=== PATIENT | female | born 1970 | race Caucasian/White ===

== ENCOUNTER → 2018-04-09 | Outpatient (CLI) | payer OTHER | END | disposition home or self-care (01) | LOC: ORTHO 03:33 | DX: M25.562 Pain in left knee (principal) ==

== ENCOUNTER → 2018-04-21 | Outpatient (CLI) | payer OTHER | END | disposition home or self-care (01) | LOC: MRI 02:54 | DX: S83.282A Other tear of lateral meniscus, current injury, left knee, initial encounter (principal); M17.12 Unilateral primary osteoarthritis, left knee; M25.462 Effusion, left knee; X58.XXXA Exposure to other specified factors, initial encounter; Y93.89 Activity, other specified; Y92.89 Other specified places as the place of occurrence of the external cause; Y99.8 Other external cause status ==

== ENCOUNTER 2020-12-30 09:37 | Emergency (ER) | payer OTHER ==
[~2020-12-30] VITALS: Ht 160 cm; Wt 88.5 kg
[2020-12-30 09:49] VITALS: BP 168/84
[2020-12-30] MEDS ORDERED: SEPTDS PO (10:08)
[2020-12-30] MEDS ORDERED: CEPHALEXIN500 M1 PO (10:08)
== END 2020-12-30 10:20 | disposition home or self-care (01) ==
LOC: ED 09:37
DX: L02.415 Cutaneous abscess of right lower limb (principal)

== ENCOUNTER → 2021-03-13 | Outpatient (CLI) | payer OTHER ==
[~2021-03-13] MED LIST: CEPHALEXIN500 M1 PO; SEPTDS PO
[2021-03-13 11:09] LABS: CREATININE 0.89 mg/dL (0.55-1.02)
== END | disposition home or self-care (01) ==
LOC: LAB 10:29
PROVIDERS: ATTEND Surgery
DX: Z01.818 Encounter for other preprocedural examination (principal)

== ENCOUNTER → 2021-03-18 | Outpatient (CLI) | payer OTHER | END | disposition home or self-care (01) | LOC: CT 00:10 | PROVIDERS: ATTEND Surgery | DX: Z01.818 Encounter for other preprocedural examination (principal); K76.0 Fatty (change of) liver, not elsewhere classified; L02.211 Cutaneous abscess of abdominal wall; E65 Localized adiposity ==

== ENCOUNTER → 2022-01-10 | Outpatient (CLI) | payer OTHER ==
[2022-01-10 07:28] LABS: BASO % 0.4 % (0.0-1.0); EOS # 0.2 10*3/uL (0.0-0.4); EOS % 3.9 % (1.0-4.0); HEMATOCRIT 41.8 % (37.0-47.0); LYMPH # 1.7 10*3/uL (1.3-4.4); LYMPH % 36.2 % (27.0-41.0); MEAN CELL VOLUME 89.5 fl (81.0-99.0); MEAN CORPUSCULAR HGB 28.9 pg (27.0-31.0); MEAN CORPUSCULAR HGB CONC 32.3 g/dl (33.0-37.0); MONO # 0.5 10*3/uL (0.1-1.0); NEUT # 2.3 10*3/uL (2.3-7.9); NEUT % 49.3 % (47.0-73.0); PLATELET COUNT AUTOMATED 231 10*3/uL (130-400); RED BLOOD COUNT 4.67 10*6/uL (4.10-5.10); RED CELL DISTRI WIDTH 12.3 % (0-14.5); WHITE BLOOD COUNT 4.6 10*3/uL (4.8-10.8)
[2022-01-10 07:57] LABS: ALKALINE PHOSPHATASE 88 U/L (45-117); BUN 15 mg/dl (7-24); CHLORIDE 107 mmol/L (98-107); CHOLESTEROL 157 mg/dL (<200); CREATININE 1.05 mg/dL (0.55-1.02); LDL CHOLESTEROL 88 mg/dL (9-159); POTASSIUM 4.1 mmol/L (3.5-5.1); SGOT/AST 30 IU/L (3-35); SGPT/ALT 47 U/L (12-78); SODIUM 139 mmol/L (136-145); TOTAL PROTEIN 7.5 gm/dL (6.4-8.2); TRIGLYCERIDES 95 mg/dl (<150)
== END | disposition home or self-care (01) ==
LOC: LAB 07:04
PROVIDERS: ATTEND Nurse Practitioner
DX: Z13.9 Encounter for screening, unspecified (principal); L02.91 Cutaneous abscess, unspecified

== ENCOUNTER → 2022-01-21 | Outpatient (CLI) | payer OTHER | END | disposition home or self-care (01) | LOC: MAMMO 00:23 | PROVIDERS: ATTEND Surgery | DX: Z12.31 Encounter for screening mammogram for malignant neoplasm of breast (principal); L02.91 Cutaneous abscess, unspecified; N64.89 Other specified disorders of breast ==

== ENCOUNTER → 2022-03-11 | Outpatient (CLI) | payer OTHER ==
[~2022-03-11] MED LIST changes: +NAPROXEN250 MG PO; +TYLENOL325 M1 PO
== END | disposition home or self-care (01) ==
LOC: WOUNDCARE 03:32
PROVIDERS: ATTEND Surgery
DX: N61.1 Abscess of the breast and nipple (principal); L02.411 Cutaneous abscess of right axilla; L73.2 Hidradenitis suppurativa

== ENCOUNTER → 2022-03-18 | Outpatient (CLI) | payer OTHER | END | disposition home or self-care (01) | LOC: WOUNDCARE 03-17 05:02 | PROVIDERS: ATTEND Surgery | DX: L02.411 Cutaneous abscess of right axilla (principal); L73.2 Hidradenitis suppurativa ==

== ENCOUNTER → 2022-03-19 | Outpatient (CLI) | payer OTHER | END | disposition home or self-care (01) | LOC: RAD 18:52 | PROVIDERS: ATTEND Physical Therapist | DX: M54.12 Radiculopathy, cervical region (principal); M25.512 Pain in left shoulder; M25.712 Osteophyte, left shoulder ==

== ENCOUNTER → 2022-04-01 | Outpatient (CLI) | payer OTHER | LOC: WOUNDCARE 01:36 | PROVIDERS: ATTEND Surgery | DX: L02.411 Cutaneous abscess of right axilla (principal); L73.2 Hidradenitis suppurativa ==

== ENCOUNTER → 2022-04-29 | Outpatient (CLI) | payer OTHER | END | disposition home or self-care (01) | LOC: WOUNDCARE 01:08 | PROVIDERS: ATTEND Surgery | DX: L02.411 Cutaneous abscess of right axilla (principal); L73.2 Hidradenitis suppurativa ==

== ENCOUNTER → 2022-10-28 | Outpatient (CLI) | payer OTHER ==
[2022-10-28 17:19] LABS: BASO % 0.4 % (0.0-1.0); EOS # 0.1 10*3/uL (0.0-0.4); EOS % 1.8 % (1.0-4.0); HEMATOCRIT 44.2 % (37.0-47.0); LYMPH # 2.3 10*3/uL (1.3-4.4); LYMPH % 30.1 % (27.0-41.0); MEAN CELL VOLUME 90.2 fl (81.0-99.0); MEAN CORPUSCULAR HGB 29.4 pg (27.0-31.0); MEAN CORPUSCULAR HGB CONC 32.6 g/dl (33.0-37.0); MEAN PLATELET VOLUME 12.1 fl (9.6-12.3); MONO # 0.6 10*3/uL (0.1-1.0); MONO % 7.6 % (3.0-9.0); NEUT # 4.6 10*3/uL (2.3-7.9); PLATELET COUNT AUTOMATED 229 10*3/uL (130-400); RED CELL DISTRI WIDTH 12.6 % (0-14.5); WHITE BLOOD COUNT 7.7 10*3/uL (4.8-10.8)
== END | disposition home or self-care (01) ==
LOC: LAB 16:56
PROVIDERS: ATTEND Student in an Organized Health Care Education/Training Program
DX: I10 Essential (primary) hypertension (principal)

== ENCOUNTER 2024-01-14 15:11 | Emergency (ER) | payer OTHER ==
[~2024-01-14] VITALS: Ht 157.4 cm; Wt 90.7 kg
[~2024-01-14 15:11] MED LIST changes: -AMLODIPINE BESYL5 MG PO; -METFORMIN HYDR500 MG PO
[2024-01-14] MEDS ORDERED: METFORMIN HYDR500 MG PO (15:22)
[2024-01-14] MEDS ORDERED: AMLODIPINE BESYL5 MG PO (15:23)
[2024-01-14] MEDS ORDERED: HYDROmorphONE Hydrochloride 1 MG/ML SYR IV ONE (15:30)
[2024-01-14] MEDS ORDERED: Ondansetron Hydrochloride 4 MG/2 ML VIAL IV ONE (15:30)
[2024-01-14] MEDS ORDERED: SODIUM CHLORIDE 0.9% 1,000 ML IV ONE (15:30)
[2024-01-14] MEDS ORDERED: POTASSIUM CHLORIDE 20 MEQ TAB PO ONE (15:35)
[2024-01-14] MEDS ORDERED: Ceftriaxone Sodium 1 GM/10 ML SYR IV ONE (15:35)
[2024-01-14 17:44] VITALS: BP 144/72
[2024-01-14] MEDS ORDERED: HYDROmorphONE Hydrochloride 1 MG/ML SYR IV PRN (17:55)
[2024-01-14] MEDS ORDERED: Ondansetron Hydrochloride 4 MG/2 ML VIAL IV SCH (20:00)
== END 2024-01-14 18:41 | disposition home or self-care (01) ==
LOC: ED 15:11
DX: N20.0 Calculus of kidney (principal); N39.0 Urinary tract infection, site not specified; E87.6 Hypokalemia; N17.9 Acute kidney failure, unspecified; R11.2 Nausea with vomiting, unspecified

== ENCOUNTER → 2024-01-14 | Outpatient (CLI) | payer OTHER ==
[~2024-01-14] MED LIST changes: +AMLODIPINE BESYL5 MG PO; +METFORMIN HYDR500 MG PO
[2024-01-14 10:47] LABS: HEMATOCRIT 43.2 % (37.0-47.0); MEAN CELL VOLUME 88.2 fl (81.0-99.0); MEAN CORPUSCULAR HGB 29.2 pg (27.0-31.0); MEAN CORPUSCULAR HGB CONC 33.1 g/dl (33.0-37.0); MEAN PLATELET VOLUME 12.4 fl (9.6-12.3); PLATELET COUNT AUTOMATED 155 10*3/uL (130-400); RED CELL DISTRI WIDTH 12.5 % (0-14.5); WHITE BLOOD COUNT 12.3 10*3/uL (4.8-10.8)
[2024-01-14 10:48] LABS: MANUAL DIFF REFLEX YES
[2024-01-14 11:16] LABS: TOTAL CELLS COUNTED 100 #CELLS
[2024-01-14 11:17] LABS: PLATELET SUFFICIENCY NORMAL (NORMAL); POLYCHROMASIA SLIGHT; VACUOLATION OF NEUTROPHILS SLIGHT
[2024-01-14 11:22] LABS: POTASSIUM 3.3 mmol/L (3.4-5.1); TOTAL PROTEIN 7.7 gm/dL (6.0-8.0)
== END | disposition home or self-care (01) ==
LOC: LAB 09:50 → CT 09:50
PROVIDERS: ATTEND Nurse Practitioner Family
DX: N20.0 Calculus of kidney (principal); N17.9 Acute kidney failure, unspecified; R00.0 Tachycardia, unspecified; R11.2 Nausea with vomiting, unspecified; R10.12 Left upper quadrant pain; N04.9 Nephrotic syndrome with unspecified morphologic changes; N13.30 Unspecified hydronephrosis; N13.4 Hydroureter; M48.07 Spinal stenosis, lumbosacral region; M25.78 Osteophyte, vertebrae; K76.0 Fatty (change of) liver, not elsewhere classified

== ENCOUNTER → 2024-02-03 | Outpatient (CLI) | payer OTHER ==
[~2024-02-03] MED LIST changes: +AMLODIPINE BESYL5 MG PO; +METFORMIN HYDR500 MG PO
[2024-02-03 15:49] LABS: BASO % 0.5 % (0.0-1.0); EOS # 0.3 10*3/uL (0.0-0.4); EOS % 4.9 % (1.0-4.0); LYMPH # 1.9 10*3/uL (1.3-4.4); LYMPH % 33.7 % (27.0-41.0); MEAN CELL VOLUME 93.5 fl (81.0-99.0); MEAN PLATELET VOLUME 12.2 fl (9.6-12.3); MONO # 0.6 10*3/uL (0.1-1.0); MONO % 10.5 % (3.0-9.0); NEUT # 2.9 10*3/uL (2.3-7.9); NEUT % 50.2 % (47.0-73.0); PLATELET COUNT AUTOMATED 246 10*3/uL (130-400); RED BLOOD COUNT 4.28 10*6/uL (4.10-5.10); RED CELL DISTRI WIDTH 12.9 % (0-14.5); WHITE BLOOD COUNT 5.7 10*3/uL (4.8-10.8)
[2024-02-03 16:11] LABS: POTASSIUM 3.9 mmol/L (3.4-5.1); TOTAL PROTEIN 7.3 gm/dL (6.0-8.0)
== END | disposition home or self-care (01) ==
LOC: RAD 08:59 → LAB 08:59
PROVIDERS: Nurse Practitioner Family; ATTEND Urology
DX: N20.0 Calculus of kidney (principal); N17.9 Acute kidney failure, unspecified; Z96.0 Presence of urogenital implants; M47.817 Spondylosis without myelopathy or radiculopathy, lumbosacral region

== ENCOUNTER → 2024-02-16 | Outpatient (CLI) | payer OTHER | END | disposition home or self-care (01) | LOC: RAD 16:46 | PROVIDERS: ATTEND Urology | DX: N20.0 Calculus of kidney (principal) ==

== ENCOUNTER → 2024-02-26 | Outpatient (CLI) | payer OTHER | END | disposition home or self-care (01) | LOC: US 02-24 17:00 | PROVIDERS: ATTEND Urology | DX: N20.0 Calculus of kidney (principal) ==

== ENCOUNTER → 2024-02-29 | Outpatient (CLI) | payer OTHER ==
[2024-02-29 16:11] LABS: BASO % 0.6 % (0.0-1.0); BILIRUBIN Negative (Negative); BLOOD Negative (Negative); CLARITY Cloudy (Clear); COLOR Yellow (Yellow); EOS # 0.2 10*3/uL (0.0-0.4); GLUCOSE Negative (Negative); HEMATOCRIT 39.7 % (37.0-47.0); KETONE Trace (Negative); LEUKO ESTERASE 1+ (Negative); LYMPH # 1.9 10*3/uL (1.3-4.4); LYMPH % 35.4 % (27.0-41.0); MEAN CELL VOLUME 92.5 fl (81.0-99.0); MEAN CORPUSCULAR HGB 29.4 pg (27.0-31.0); MEAN CORPUSCULAR HGB CONC 31.7 g/dl (33.0-37.0); MEAN PLATELET VOLUME 12.3 fl (9.6-12.3); MONO # 0.5 10*3/uL (0.1-1.0); MONO % 9.7 % (3.0-9.0); NEUT # 2.7 10*3/uL (2.3-7.9); NEUT % 51.1 % (47.0-73.0); NITRITE Negative (Negative); PH 5.5 (4.5-8.0); PLATELET COUNT AUTOMATED 221 10*3/uL (130-400); RED BLOOD COUNT 4.29 10*6/uL (4.10-5.10); RED CELL DISTRI WIDTH 13.1 % (0-14.5); SPECIFIC GRAVITY 1.025 (1.001-1.030); WHITE BLOOD COUNT 5.3 10*3/uL (4.8-10.8)
[2024-02-29 16:30] LABS: MUCOUS TRACE; WBC 16-20 wbc/hpf (0-5)
[2024-02-29 16:36] LABS: POTASSIUM 3.5 mmol/L (3.4-5.1); THYROXINE (T4) TOTAL 6.1 ug/dl (4.5-10.9); TOTAL PROTEIN 7.8 gm/dL (6.0-8.0)
== END | disposition home or self-care (01) ==
LOC: LAB 01:47
PROVIDERS: ATTEND Urology
DX: N20.0 Calculus of kidney (principal); E83.50 Unspecified disorder of calcium metabolism; R31.9 Hematuria, unspecified

== ENCOUNTER → 2024-03-03 | Outpatient (CLI) | payer OTHER | END | disposition home or self-care (01) | LOC: LAB 07:21 | PROVIDERS: ATTEND Urology | DX: N20.0 Calculus of kidney (principal); E83.50 Unspecified disorder of calcium metabolism; R31.9 Hematuria, unspecified ==

== ENCOUNTER → 2024-04-26 | Outpatient (CLI) | payer OTHER | END | disposition home or self-care (01) | LOC: RAD 01:58 | PROVIDERS: ATTEND Nurse Practitioner Family | DX: M25.461 Effusion, right knee (principal); M25.561 Pain in right knee ==

== ENCOUNTER → 2024-07-18 | Outpatient (CLI) | payer OTHER | END | disposition home or self-care (01) | LOC: LAB 07-15 16:31 | PROVIDERS: ATTEND Urology | DX: N20.0 Calculus of kidney (principal); E83.50 Unspecified disorder of calcium metabolism; R31.9 Hematuria, unspecified ==

== ENCOUNTER → 2025-03-24 | Outpatient (CLI) | payer OTHER | END | disposition home or self-care (01) | LOC: CT 01:49 | PROVIDERS: ATTEND Nurse Practitioner Family | DX: K57.30 Diverticulosis of large intestine without perforation or abscess without bleeding (principal); N26.1 Atrophy of kidney (terminal); N20.0 Calculus of kidney; K76.0 Fatty (change of) liver, not elsewhere classified; R30.0 Dysuria; R31.9 Hematuria, unspecified; N23 Unspecified renal colic; Z87.442 Personal history of urinary calculi ==

== ENCOUNTER → 2025-04-25 | Outpatient (CLI) | payer OTHER | END | disposition home or self-care (01) | LOC: MAMMO 04:30 | PROVIDERS: ATTEND Nurse Practitioner Family | DX: Z12.31 Encounter for screening mammogram for malignant neoplasm of breast (principal); Z00.01 Encounter for general adult medical examination with abnormal findings; R92.313 Mammographic fatty tissue density, bilateral breasts ==

== ENCOUNTER → 2025-06-05 | Day surgery (SDC) | payer OTHER ==
[~2025-06-05] VITALS: Ht 160 cm; Wt 93.0 kg
[~2025-06-05] MED LIST changes: +ACETAMINOPHEN650 M5 PO; +Lactated Ringer's Solution 1,000 ML IV ONE; +Lidocaine Hydrochloride 5 ML VIAL IV ONE; +PROPOFOL 200 MG/20 ML VIAL IV ONE
[2025-06-05 06:30] VITALS: BP 156/84
[2025-06-05 07:55] VITALS: BP 98/73
[2025-06-05 08:10] VITALS: BP 134/65
[2025-06-05 08:22] VITALS: BP 129/69
== END | disposition home or self-care (01) ==
LOC: SDC 06-02 12:30
PROVIDERS: ATTEND Surgery
DX: Z12.11 Encounter for screening for malignant neoplasm of colon (principal); K57.30 Diverticulosis of large intestine without perforation or abscess without bleeding; K64.8 Other hemorrhoids; I10 Essential (primary) hypertension; L73.2 Hidradenitis suppurativa; G47.33 Obstructive sleep apnea (adult) (pediatric); E66.9 Obesity, unspecified; N39.0 Urinary tract infection, site not specified; N20.0 Calculus of kidney; Z98.890 Other specified postprocedural states; Z79.899 Other long term (current) drug therapy; Z68.36 Body mass index [BMI] 36.0-36.9, adult

== ENCOUNTER → 2025-08-30 | Outpatient (CLI) | payer OTHER ==
[~2025-08-30] MED LIST changes: -Lactated Ringer's Solution 1,000 ML IV ONE; -Lidocaine Hydrochloride 5 ML VIAL IV ONE; -PROPOFOL 200 MG/20 ML VIAL IV ONE
[2025-08-30 16:16] LABS: BASO # 0.0 10*3/uL (0.0-0.1); BASO % 0.4 % (0.0-1.0); EOS # 0.2 10*3/uL (0.0-0.4); EOS % 2.6 % (1.0-4.0); MEAN CELL VOLUME 91.6 fl (81.0-99.0); MEAN CORPUSCULAR HGB 29.5 pg (27.0-31.0); MEAN PLATELET VOLUME 11.6 fl (9.6-12.3); MONO # 0.6 10*3/uL (0.1-1.0); MONO % 8.1 % (3.0-9.0); NEUT # 4.0 10*3/uL (2.3-7.9); NEUT % 53.7 % (47.0-73.0); NUCLEATED RED BLOOD CELL 0.0 % (0.0-0.0); NUCLEATED RED BLOOD CELL 0.0 10*3/uL (0.0-0.0); PLATELET COUNT AUTOMATED 229 10*3/uL (130-400); RED CELL DISTRI WIDTH 12.3 % (0-14.5)
[2025-08-30 16:23] LABS: BILIRUBIN Negative (Negative); BLOOD 2+ (Negative); CLARITY Cloudy (Clear); COLOR Yellow (Yellow); KETONE Negative (Negative); LEUKO ESTERASE 2+ (Negative); NITRITE Positive (Negative); PH 5.5 (4.5-8.0); SPECIFIC GRAVITY 1.025 (1.001-1.030); UROBILINOGEN 1.0 E.U./dl (0.0-1.0)
[2025-08-30 16:43] LABS: BUN 16 mg/dl (9-23)
[2025-08-30 16:53] LABS: BACTERIA 3+; RBC TNTC rbc/hpf (0-2); WBC TNTC wbc/hpf (0-5)
== END | disposition home or self-care (01) ==
LOC: LAB 15:53
PROVIDERS: ATTEND Internal Medicine Nephrology
DX: N18.31 Chronic kidney disease, stage 3a (principal)

== ENCOUNTER → 2025-09-04 | Outpatient (CLI) | payer OTHER | END | disposition home or self-care (01) | LOC: LAB 16:13 | PROVIDERS: ATTEND Nurse Practitioner Family | DX: N20.0 Calculus of kidney (principal); N30.01 Acute cystitis with hematuria; R10.A0 Flank pain, unspecified side; M47.817 Spondylosis without myelopathy or radiculopathy, lumbosacral region ==